=== PATIENT | male | born 1965 | race Caucasian/White ===

== ENCOUNTER 2018-01-12 11:38 | Emergency (ER) | payer BC ==
[~2018-01-12] VITALS: Ht 162.6 cm; Wt 93.1 kg
[~2018-01-12 11:38] MED LIST: CIPRO500 MG PO; PERCOCET 5/31 TABLET PO; PRILOSEC40 MG PO; ZOFRAN4 MG PO
[2018-01-12] MEDS ORDERED: PERCOCET 5/31 TABLET PO (13:24)
[2018-01-12] MEDS ORDERED: MOTRIN800 MG PO (13:24)
[2018-01-12 13:45] VITALS: BP 159/109
== END 2018-01-12 13:45 | disposition home or self-care (01) ==
LOC: EME 11:38
DX: S83.92XA Sprain of unspecified site of left knee, initial encounter (principal); X50.0XXA Overexertion from strenuous movement or load, initial encounter
CPT/HCPCS: 73564; 99281; 99284